=== PATIENT | female | born 1950 | race Two or more races ===

== ENCOUNTER 2025-08-04 09:49 | Outpatient (CLI) | payer MEDICAID ==
--- NOTE | 2025-08-04 12:56 | RADIOLOGY REPORT ---
CLINICAL HISTORY: GENERALIZED ABDOMINAL PAIN TECHNIQUE: CT of the abdomen and pelvis was performed without IV contrast. This exam was performed according to our departmental dose optimization program. Up-to-date CT equipment and radiation dose reduction techniques are utilized as appropriate. CTDI 9.8 DLP 485.2 COMPARISON: DI ABDOMEN,SINGLE VIEW(KUB) on DOS: 08/04/25 FINDINGS: Abdomen/Pelvis: The spleen, pancreas, adrenal glands, gallbladder, liver, kidneys, and bladder are grossly unremarkable. The uterus is absent. The abdominal aorta is normal in caliber with mild atherosclerotic calcifications. There is no free intraperitoneal air. There is trace nonspecific free fluid in the deep pelvis. There is no enlarged abdominal pelvic lymph node. There is no bowel wall thickening or dilatation. The appendix is normal. Other: The imaged lower thorax demonstrates a mild cardiomegaly. No acute osseous abnormality is evident. Impression: No acute noncontrast CT abnormality in the abdomen or pelvis.
--- NOTE | 2025-08-04 13:32 | RADIOLOGY REPORT ---
Date: 08/04/2025 12:28 PM Examination: DI ABDOMEN,SINGLE VIEW(KUB) History: ABDOMINAL PAIN Comparison: CT CT ABDOMEN PELVIS on DOS: 08/04/25 TECHNIQUE: Frontal views of the abdomen was obtained. FINDINGS: Bowel gas pattern is unremarkable. Moderate stool burden. The lung bases are unremarkable. No acute osseous abnormality identified. IMPRESSION: Nonobstructive bowel gas pattern. Moderate stool burden.
== END 2025-08-04 23:59 | disposition home or self-care (01) ==
LOC: RAD 09:49
PROVIDERS: ATTEND Family Medicine
DX: R10.84 Generalized abdominal pain (principal); I51.7 Cardiomegaly; Z90.710 Acquired absence of both cervix and uterus
CPT/HCPCS: 74018; 74176